=== PATIENT | male | born 1960 | race Caucasian/White ===

== ENCOUNTER 2019-01-07 15:20 | Emergency (ER) | payer MEDICAID ==
[~2019-01-07] VITALS: Ht 152.4 cm; Wt 70.5 kg
[2019-01-07 15:26] VITALS: BP 137/83
[2019-01-07] MEDS ORDERED: IBUPROFEN 200 MG TABLET ONE (15:56)
[2019-01-07] MEDS ORDERED: IBUPROFEN 200 MG TABLET PO ONE (16:00)
== END 2019-01-07 16:40 | disposition home or self-care (01) ==
LOC: ED 16:34
DX: S22.42XA Multiple fractures of ribs, left side, initial encounter for closed fracture (principal); F17.200 Nicotine dependence, unspecified, uncomplicated; W01.0XXA Fall on same level from slipping, tripping and stumbling without subsequent striking against object, initial encounter; Y93.01 Activity, walking, marching and hiking; Y92.009 Unspecified place in unspecified non-institutional (private) residence as the place of occurrence of the external cause; Y99.8 Other external cause status
CPT/HCPCS: 99283